=== PATIENT | male | born 1955 | race Caucasian/White ===

== ENCOUNTER 2017-02-25 20:28 | Inpatient (IN) | payer MEDICAID ==
[~2017-02-25] VITALS: Ht 149.9 cm; Wt 70.3 kg
[~2017-02-25 20:28] MED LIST: ATI1 PO; ATIVAN0.5 M1 PO; COLACE100 MG PO; ECO81 PO; FOL1 PO; LAC15L PO; METOPROLOL TART25 M1 PO; NORCO1 TA2 PO; PRI20 PO; PRILOSEC OTC20 M1 PO; THERAGRAN-M1 TA4 PO; THI100 PO; ZES10 PO; ZESTRIL10 MG PO; ZOC20 PO
[2017-02-25 21:13] LABS: BASOPHIL % 0.7 % (0-2); PLATELET COUNT 267 x10^3mcL (130-400); RED CELL DISTRIBUTION WIDTH 13.1 % (11.5-14.5)
[2017-02-25 21:23] LABS: CALCIUM 8.2 mg/dL (8.5-10.1); CARBON DIOXIDE 24.1 mmol/L (21-32); CHLORIDE SERUM 99 mmol/L (98-107); CREATININE SERUM 0.8 mg/dL (0.7-1.3); GFR1 > 60 mL/min; GLUCOSE SERUM 94 mg/dL (74-106); POTASSIUM SERUM 3.3 mmol/L (3.5-5.1); SODIUM SERUM 135 mmol/L (136-145)
[2017-02-25 21:28] LABS: ALBUMIN 3.4 g/dL (3.4-5.0); ALKALINE PHOSPHATASE 77 U/L (46-116); ALT/SGPT 23 U/L (16-63); AST/SGOT 23 U/L (15-37); BILIRUBIN TOTAL 0.32 mg/dL (0.20-1.00); TOTAL PROTEIN, SERUM 7.4 g/dL (6.4-8.2)
[2017-02-26 00:11] VITALS: BP 137/78
[2017-02-26 02:17] LABS: T3 TOTAL 1.09 ng/mL
[2017-02-26 02:18] LABS: MAGNESIUM 2.1 mg/dL (1.8-2.4); PHOSPHOROUS 3.3 mg/dL (2.5-4.9)
[2017-02-26 02:25] LABS: FREE T4 0.95 ng/dL (0.76-1.46); FREE THYROXINE INDEX 2.8 ug/dL (1.4-4.5); T4(THYROXINE) 7.3 ug/dL (4.7-13.3)
[2017-02-26 02:28] LABS: CHOLESTEROL/HDL RATIO 3.5
[2017-02-26 04:54] LABS: microscopic required? NO
[2017-02-26 05:11] LABS: UA SPECIFIC GRAVITY <=1.005 (1.005-1.035); urine erythrocyte NEGATIVE (NEGATIVE)
[2017-02-26 05:20] VITALS: BP 128/69
[2017-02-26 05:27] LABS: AMPHETAMINE QUAL UR NONE DETECTED (NEG <=1000)
[2017-02-26 10:52] VITALS: BP 156/82
[2017-02-26 13:36] VITALS: BP 152/76
[2017-02-26 16:04] LABS: BASOPHIL % 0.4 % (0-2); PLATELET COUNT 268 x10^3mcL (130-400)
[2017-02-26 16:08] LABS: CALCIUM 8.6 mg/dL (8.5-10.1); CARBON DIOXIDE 28.7 mmol/L (21-32); CHLORIDE SERUM 105 mmol/L (98-107); CREATININE SERUM 0.9 mg/dL (0.7-1.3); GFR1 > 60 mL/min; GLUCOSE SERUM 103 mg/dL (74-106); POTASSIUM SERUM 4.5 mmol/L (3.5-5.1); SODIUM SERUM 140 mmol/L (136-145)
[2017-02-26 21:44] VITALS: BP 143/85
[2017-02-27 04:47] VITALS: BP 146/78
[2017-02-27 09:11] VITALS: BP 146/78
[2017-02-27 10:00] VITALS: BP 180/88
[2017-02-27 11:00] VITALS: BP 160/79
[2017-02-27] MEDS ORDERED: ZESTRIL10 MG PO (13:23)
[2017-02-27] MEDS ORDERED: FOL1 PO (13:23)
[2017-02-27] MEDS ORDERED: METOPROLOL TART25 M1 PO (13:23)
[2017-02-27] MEDS ORDERED: ZOC20 PO (13:23)
[2017-02-27] MEDS ORDERED: THERAGRAN-M1 TA4 PO (13:23)
[2017-02-27] MEDS ORDERED: PRI20 PO (13:24)
[2017-02-27] MEDS ORDERED: THI100 PO (13:24)
== END 2017-02-27 14:25 | disposition home or self-care (01) | DRG 243 ==
LOC: ED 20:28 → DU 23:27
PROVIDERS: Emergency Medicine; ADMIT Family Medicine
DX: K21.9 Gastro-esophageal reflux disease without esophagitis (principal); E44.0 Moderate protein-calorie malnutrition; E87.6 Hypokalemia; E87.1 Hypo-osmolality and hyponatremia; F10.10 Alcohol abuse, uncomplicated; I10 Essential (primary) hypertension; E66.9 Obesity, unspecified; Z68.31 Body mass index [BMI] 31.0-31.9, adult; Z79.82 Long term (current) use of aspirin
CPT/HCPCS: 82962; 83880; 84439; G0480; J2060; J7030; Q0092

== ENCOUNTER 2018-08-06 23:16 | Emergency (ER) | payer OTHER, MEDICAID ==
[~2018-08-06] VITALS: Ht 149.9 cm; Wt 68.9 kg
[2018-08-06 23:23] VITALS: Ht 149.9 cm; Wt 68.9 kg
[2018-08-07 00:35] LABS: BASOPHIL % 0.4 % (0-2); PLATELET COUNT 236 x10^3mcL (130-400); RED CELL DISTRIBUTION WIDTH 13.4 % (11.5-14.5)
[2018-08-07 00:50] LABS: AMPHETAMINE QUAL UR NONE DETECTED (See below)
[2018-08-07 01:09] LABS: CARBON DIOXIDE 23.1 mmol/L (21-32); CHLORIDE SERUM 98 mmol/L (98-107); CREATININE SERUM 0.8 mg/dL (0.7-1.3); GFR1 > 60 mL/min; GLUCOSE SERUM 100 mg/dL (74-106); POTASSIUM SERUM 3.4 mmol/L (3.5-5.1); SODIUM SERUM 134 mmol/L (136-145)
[2018-08-07 01:17] LABS: ALBUMIN 3.4 g/dL (3.4-5.0); ALKALINE PHOSPHATASE 69 U/L (46-116); ALT/SGPT 19 U/L (16-63); AST/SGOT 16 U/L (15-37); BILIRUBIN TOTAL 0.2 mg/dL (0.20-1.00); TOTAL PROTEIN, SERUM 7.2 g/dL (6.4-8.2)
[2018-08-07 05:19] VITALS: BP 132/67
== END 2018-08-07 05:19 | disposition left against medical advice (07) ==
LOC: ED 23:16
PROVIDERS: Emergency Medicine
DX: R07.89 Other chest pain (principal); R42 Dizziness and giddiness; R51 Headache; F10.129 Alcohol abuse with intoxication, unspecified; V48.6XXA Car passenger injured in noncollision transport accident in traffic accident, initial encounter; Y93.89 Activity, other specified; Y92.488 Other paved roadways as the place of occurrence of the external cause; Y99.8 Other external cause status
CPT/HCPCS: 36415; G0480